=== PATIENT | female | born 1980 | race Asian ===

== ENCOUNTER 2018-04-22 06:28 | Day surgery (SDC) | payer BC ==
[~2018-04-22] VITALS: Ht 157.5 cm; Wt 45.0 kg
[2018-04-22] VITALS (9 sets, daily range): BP systolic 101–115; BP diastolic 63–73; PULSE 59–76; RESP 16–26; Ht 157.5 cm; Wt 45.0 kg
[2018-04-22] MEDS ORDERED: PROPOFOL 40 ML ONE (07:51)
[2018-04-22] MEDS ORDERED: CLINDAMYCIN 600 MG/D5W (PMX) 50 ML IVPB ONE (07:51)
[2018-04-22] MEDS ORDERED: LIDOCAINE 2% (SDV) 5 ML INJ ONE (07:51)
[2018-04-22] MEDS ORDERED: FENTAnyl 50 MCG/ML VIAL ONE (07:52)
--- NOTE | 2018-04-22 08:02 | PREAC ---
Date/Time of Note Date/Time of Note DATE: 04/22/18 TIME: 08:00 Anesthesia Eval and Record Evaluation Time Pre-Procedure Interview DATE: 04/22/18 TIME: 08:00 Age 37 Sex female NPO: 8 hrs Preoperative diagnosis left little finger fracture Planned procedure PIP joint fusion of left little finger Past Medical History Past Medical History: None Surgery & Anesthesia Issues No known issue (only had local for wisdom teeth extraction) Meds Anticoagulation: No Beta Gerald within 24 hr: No Reason Beta Gerald not given: Pt. not on B-Gerald No Active Prescriptions or Reported Meds Meds reviewed: Yes Allergies Coded Allergies: cephalexin (Verified Allergy, Unknown, ITCHY, 04/22/18) Allergies Reviewed: Yes Labs/Studies Labs Reviewed: Reviewed by anesthesiologist test: Negative Pre-procedure Exam Last vitals Vital Signs Date Temp Pulse Resp B/P (MAP) Pulse Ox O2 O2 Flow FiO2 Time Delivery Rate 04/22/18 98.0 67 16 111/68 97 Room Air 07:14 (82) Airway: Adequate mouth opening Mallampati: Mallampati I Teeth: Normal Lung: Normal Heart: Normal ASA Physical Status ASA physical status: 1 Emergency: None Planned Anesthetic General/MAC: LMA Planned Pain Management Parenteral pain med, Local by surgeon Pre-operative Attestations Prior to commencing anesthesia and surgery, the patient was re-evaluated, there was verification of: *The patient's identity *The results of appropriate recent lab work and preoperative vital signs *The above evaluation not changing prior to induction *Anesthetic plan, risk benefits, alternative and complications discussed with patient/family; questions answered; patient/family understands, accepts and wishes to proceed. HANNAH JARAMILLO Apr 22, 2018 08:02
[2018-04-22] MEDS ORDERED: BUPIVACAINE 0.5% (SDV) 30 ML INJ ONE (08:17)
[2018-04-22] MEDS ORDERED: LIDOCAINE 2% (MDV) 20 ML INJ ONE (08:17)
--- NOTE | 2018-04-22 08:17 | HPN ---
Date/Time of Note Date/Time of Note DATE: 04/22/18 TIME: 08:17 Interval H&P Admission Note Pt. seen H&P reviewed: No system changes NASRIN CARTER MD Apr 22, 2018 08:17
[2018-04-22] MEDS ORDERED: MIDAZOLAM 1 MG/ML 2 ML INJ IV PRN (08:30)
[2018-04-22] MEDS ORDERED: ONDANSETRON 4 MG INJ IV PRN (08:30)
[2018-04-22] MEDS ORDERED: MEPERIDINE 25 MG INJ IV PRN (08:30)
[2018-04-22] MEDS ORDERED: HYDROmorphONE 1 MG/5 ML IV SYRINGE IV PRN ×3 (08:30)
[2018-04-22] MEDS ORDERED: OXYCODONE/ACETAMINOPHEN (5/325) TAB PO PRN ×2 (08:30)
--- NOTE | 2018-04-22 09:56 | PAC ---
Date/Time of Note Date/Time of Note DATE: 04/22/18 TIME: 09:56 Post-Anesthesia Notes Post-Anesthesia Note Last documented vital signs Vital Signs Date Temp Pulse Resp B/P (MAP) Pulse Ox O2 O2 Flow FiO2 Time Delivery Rate 04/22/18 66 25 101/64 100 Room Air 09:51 (76) 04/22/18 97.7 09:36 Activity: WNL Respiratory function: WNL Cardiovascular function: WNL Mental status: Baseline Pain reasonably controlled: Yes Hydration appropriate: Yes Nausea/Vomiting absent: Yes HANNAH JARAMILLO Apr 22, 2018 09:56
--- NOTE | 2018-04-22 12:58 | OPR ---
DATE OF OPERATION: 04/22/2018 SURGEON: Nasrin Phoenix MD CUSTOMER DEVELOPMENT REPRESENTATIVE: Staff. 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 Deformit y of the finger. POSTOPERATIVE DIAGNOSIS: The patient had about a 39-wtwnk-smv fracture, subluxation of the PIP joint , left hand, little finger, was stiff, unstable irregular and arthritic from a prior trauma. Deformi ty of the finger. OPERATION PERFORMED: PIP joint arthrodesis. SURGICAL PAUSE: I examined the patient in the preop holding area, I goldie in the surgical incision. I confirmed the operative procedure and plan. INFORMED CONSENT: With time we scheduled the operative procedure, we talked the risks and hazards of surgery, talked about operative mortality, wound infection, nerve injury, good result, bad result an d potential complications. Patient signed a note confirming the informed consent conversation. DESCRIPTION OF PROCEDURE: The patient was taken to surgery, anesthetized above. Did receive a regio nal anesthetic. A longitudinal dorsal incision made. The extensor mechanism was reflected off the d orsum of the PIP joint, which was exposed circumferentially. We decorticated the respective ends of the distal end of the proximal phalanx proximal and the middle phalanx, both sides of the PIP joint d own to raw, subchondral cancellous bone. We placed it in about 50 degrees of flexion and pinned it w ith 2 Cross K-wires and over them, drilled it and passed a headless screw from the [employer] set. The re was not enough room for a second screw. I thought about it and had to abandon that. Closed the e xtensor mechanism with 3-0 Vicryl and Vicryl Rapide on the skin. We will keep the patient splinted a month and then start her on motion. What little bone graft we obtained from taking the articular e nds off, packed underneath the volar plate where the fusion typically occurs. If you look at the PIP joint fusions, they almost always fuse on the volar side and often do not fuse on the dorsal side at the compression side. The operative procedure was about 45 minutes. The patient awake in recovery. DISCHARGE MEDICATIONS: 1. Clindamycin. 2. Small dose of hydrocodone and acetaminophen. Dictated By: NASRIN RICHARD/OLYA Conf#: [id number] DID#: [id number]
== END 2018-04-22 12:15 | disposition home or self-care (01) ==
LOC: SDS 06:28
PROVIDERS: ATTEND Orthopaedic Surgery Hand Surgery
DX: S63.287D Dislocation of proximal interphalangeal joint of left little finger, subsequent encounter (principal); X58.XXXD Exposure to other specified factors, subsequent encounter
CPT/HCPCS: 26860; 73130; C1713; J3010